=== PATIENT | male | born 1965 | race Caucasian/White ===

== ENCOUNTER 2022-04-27 06:54 | Day surgery (SDC) | payer MEDICAID ==
[~2022-04-27] VITALS: Ht 177.8 cm; Wt 110.2 kg
[2022-04-27] MEDS: MEPERIDINE 100 MG INJ. 100 MG/ML VIAL ONE ×2 (10:11→10:17)
[2022-04-27] MEDS: MIDAZOLAM HCL 5 MG/5 ML VIAL ONE ×3 (10:11→10:19)
[2022-04-27 16:11] VITALS: BP_SYST 147
== END 2022-04-27 11:35 | disposition home or self-care (01) ==
LOC: SDS 06:54
PROVIDERS: ATTEND Internal Medicine
DX: R19.4 Change in bowel habit (principal); D12.2 Benign neoplasm of ascending colon; K57.30 Diverticulosis of large intestine without perforation or abscess without bleeding; K62.5 Hemorrhage of anus and rectum; Z79.899 Other long term (current) drug therapy; Z20.822 Contact with and (suspected) exposure to COVID-19
CPT/HCPCS: 45380; 45385; 87426; 36415; 88305; 99152; 99153; G0378; J2250; J2175